=== PATIENT | female | born 1955 | race Caucasian/White ===

== ENCOUNTER 2016-06-30 01:03 | Inpatient (IN) | payer OTHER ==
[~2016-06-30] VITALS: Ht 152.4 cm; Wt 47.4 kg
[2016-06-30 01:16] VITALS: BP 165/83; PULSE 102; RESP 18; TEMP 98.7; O2SAT 99
[2016-06-30] MEDS ORDERED: LIDOCAINE 1%/EPINEPHrine 1:100,000 SOLN 20 ML VIAL ONE (01:24)
[2016-06-30 03:09] LABS: BASOPHIL # 0.1 TH/MM3 (0-0.2); BASOPHIL % 1.5 % (0.0-2.0); EOSINOPHIL # 0.2 TH/MM3 (0-0.4); EOSINOPHIL % 1.7 % (0.0-4.0); HEMATOCRIT 35.9 % (35.0-46.0); HEMO FLAGS DIFF FINAL; LYMPH % 39.3 % (9.0-44.0); MEAN CELL VOLUME 95.3 FL (80.0-100.0); MEAN CORPUSCULAR HGB CONC 33.6 % (32.0-36.0); NEUT % 49.5 % (16.0-70.0); PLATELET COUNT 384 TH/MM3 (150-450); RED BLOOD COUNT 3.77 MIL/MM3 (4.00-5.30); RED CELL DISTRIBUTION WIDTH 14.7 % (11.6-17.2); WHITE BLOOD COUNT 10.1 TH/MM3 (4.0-11.0)
[2016-06-30 03:21] LABS: ALT (GPT) 18 U/L (10-53); ANION GAP 11 MEQ/L (5-15); AST (GOT) 12 U/L (15-37); BICARBONATE 23.7 MEQ/L (21.0-32.0); BLOOD UREA NITROGEN 10 MG/DL (7-18); CHLORIDE 112 MEQ/L (98-107); GLOMERULAR FILTRATION RATE 135 ML/MIN (>89); SODIUM (NA) 147 MEQ/L (136-145)
[2016-06-30 03:24] LABS: ACETAMINOPHEN LESS THAN 2.0 MCG/ML (10.0-30.0); ALKALINE PHOSPHATASE 123 U/L (45-117); TOTAL BILIRUBIN ADULT 0.2 MG/DL (0.2-1.0)
--- NOTE | 2016-06-30 04:48 | PD ---
HPI Chief Complaint: Psychiatric Symptoms Time Seen by Provider: 02:42 Travel History International Travel<30 days: No Contact w/Intl Traveler<30days: No Traveled to known affect area: No History of Present Illness HPI 61F arrives as a chery act. She states the Internet is going to kill her. She drank alcohol today. She refused medical care after she fell and lacerated her right parietal occipital scalp. Agitated upon arrival. Refused care. Shouting. Incompetent for refusal of care. Soft restraints applied. [facility] Past Medical History Medical History: Unable to Obtain Past Surgical History Surgical History: Unable to Obtain Social History Alcohol Use: Yes Tobacco Use: Yes Substance Use: No Allergies-Medications (Allergen,Severity, Reaction): Coded Allergies: UNOBTAINABLE (Unverified , 06/30/16) PT UNCOOPERATIVE AT THIS TIME. Reported Meds & Prescriptions Reported Meds & Active Scripts Active Active Prescriptions or Reported Medications Unobtainable Review of Systems ROS Limitations: Clinical Condition, Uncooperative, Combative, Psychotic Physical Exam Narrative GENERAL: 61 yo F, WNWD SKIN: Warm and dry. HEAD: Atraumatic. Normocephalic. 3 cm laceration along the right occipital scalp. EYES: Pupils equal and round. No scleral icterus. No injection or drainage. ENT: No nasal bleeding or discharge. Mucous membranes pink and moist. NECK: Trachea midline. No JVD. CARDIOVASCULAR: Regular rate and rhythm. RESPIRATORY: No accessory muscle use. Clear to auscultation. Breath sounds equal bilaterally. GASTROINTESTINAL: Abdomen soft, non-tender, nondistended. Hepatic and splenic margins not palpable. MUSCULOSKELETAL: Extremities without clubbing, cyanosis, or edema. No obvious deformities. NEUROLOGICAL: Awake and alert. No obvious cranial nerve deficits. Motor grossly within normal limits. Five out of 5 muscle strength in the arms and legs. Normal speech. PSYCHIATRIC: Agitated. Psychotic. Data Data Last Documented VS Vital Signs Date Time Temp Pulse Resp B/P Pulse Ox O2 Delivery O2 Flow Rate FiO2 06/30/16 01:16 98.7 102 18 165/83 99 Vital signs reviewed Orders Lidocai-Epi 1%-1:100,000 Inj (Xylocaine- (06/30/16 01:24) Complete Blood Count With Diff (06/30/16 02:42) Comprehensive Metabolic Panel (06/30/16 02:42) Psych Screen (06/30/16 02:42) Drug Screen, Random Urine (06/30/16 02:42) Alcohol (Ethanol) (06/30/16 02:42) Salicylates (Aspirin) (06/30/16 02:42) Tylenol (Acetaminophen) (06/30/16 02:42) Labs Laboratory Tests Test 06/30/16 03:01 White Blood Count 10.1 TH/MM3 Red Blood Count 3.77 MIL/MM3 Hemoglobin 12.1 GM/DL Hematocrit 35.9 % Mean Corpuscular Volume 95.3 FL Mean Corpuscular Hemoglobin 32.0 PG Mean Corpuscular Hemoglobin 33.6 % Concent Red Cell Distribution Width 14.7 % Platelet Count 384 TH/MM3 Mean Platelet Volume 8.8 FL Neutrophils (%) (Auto) 49.5 % Lymphocytes (%) (Auto) 39.3 % Monocytes (%) (Auto) 8.0 % Eosinophils (%) (Auto) 1.7 % Basophils (%) (Auto) 1.5 % Neutrophils # (Auto) 5.0 TH/MM3 Lymphocytes # (Auto) 4.0 TH/MM3 Monocytes # (Auto) 0.8 TH/MM3 Eosinophils # (Auto) 0.2 TH/MM3 Basophils # (Auto) 0.1 TH/MM3 CBC Comment DIFF FINAL Differential Comment Sodium Level 147 MEQ/L Potassium Level 4.0 MEQ/L Chloride Level 112 MEQ/L Carbon Dioxide Level 23.7 MEQ/L Anion Gap 11 MEQ/L Blood Urea Nitrogen 10 MG/DL Creatinine 0.47 MG/DL Estimat Glomerular Filtration 135 ML/MIN Rate Random Glucose 100 MG/DL Calcium Level 8.5 MG/DL Total Bilirubin 0.2 MG/DL Aspartate Amino Transf 12 U/L (AST/SGOT) Alanine Aminotransferase 18 U/L (ALT/SGPT) Alkaline Phosphatase 123 U/L Total Protein 7.1 GM/DL Albumin 3.6 GM/DL Salicylates Level 3.5 MG/DL Acetaminophen Level LESS THAN 2.0 MCG/ML Ethyl Alcohol Level 219 MG/DL [facility] Medical Decision Making Medical Screen Exam Complete: Yes Emergency Medical Condition: Yes Differential Diagnosis Altered mental status/psychosis due to infection/environmental exposure/ metabolic abnormality, polypharmacy, alcohol abuse/intoxication, illicit or prescribed drug abuse, malingering/secondary gain, non-organic psychiatric disease Narrative Course CBC & BMP Diagram 06/30/16 03:01 LFTs normal EtOH 219 APAP 2.0 The history of present illness, ROS, physical exam, review of records and medical workup performed for today's visit have reasonably safely excluded organic etiologies for the patient's presenting complaint. We will continue to monitor the patient carefully in the ER until time of evaluation by the psychiatry service. We are available for any additional medical assistance if needed during the patient's ER course. Disposition per discretion of psychiatry is appreciated. Diagnosis Primary Impression: Psychosis Qualified Code: F29 - Psychosis, unspecified psychosis type Additional Impression: Alcohol intoxication Qualified Code: F10.129 - Alcohol intoxication, with unspecified complication Scripts Unable to Obtain Active Prescriptions or Reported Meds David Roberts MD Jun 30, 2016 04:48
--- NOTE | 2016-06-30 05:27 | PD ---
Physical Exam Date Seen by Provider: Jun 30, 2016 Time Seen by Provider: 05:25 Narrative Skin: Patient has a 4 cm laceration to the right parietal scalp. No step-off. No deep injury. Data Data Last Documented VS Vital Signs Date Time Temp Pulse Resp B/P Pulse Ox O2 Delivery O2 Flow Rate FiO2 06/30/16 01:16 98.7 102 18 165/83 99 Orders Lidocai-Epi 1%-1:100,000 Inj (Xylocaine- (06/30/16 01:24) Complete Blood Count With Diff (06/30/16 02:42) Comprehensive Metabolic Panel (06/30/16 02:42) Psych Screen (06/30/16 02:42) Drug Screen, Random Urine (06/30/16 02:42) Alcohol (Ethanol) (06/30/16 02:42) Salicylates (Aspirin) (06/30/16 02:42) Tylenol (Acetaminophen) (06/30/16 02:42) Labs Laboratory Tests Test 06/30/16 03:01 White Blood Count 10.1 TH/MM3 Red Blood Count 3.77 MIL/MM3 Hemoglobin 12.1 GM/DL Hematocrit 35.9 % Mean Corpuscular Volume 95.3 FL Mean Corpuscular Hemoglobin 32.0 PG Mean Corpuscular Hemoglobin 33.6 % Concent Red Cell Distribution Width 14.7 % Platelet Count 384 TH/MM3 Mean Platelet Volume 8.8 FL Neutrophils (%) (Auto) 49.5 % Lymphocytes (%) (Auto) 39.3 % Monocytes (%) (Auto) 8.0 % Eosinophils (%) (Auto) 1.7 % Basophils (%) (Auto) 1.5 % Neutrophils # (Auto) 5.0 TH/MM3 Lymphocytes # (Auto) 4.0 TH/MM3 Monocytes # (Auto) 0.8 TH/MM3 Eosinophils # (Auto) 0.2 TH/MM3 Basophils # (Auto) 0.1 TH/MM3 CBC Comment DIFF FINAL Differential Comment Sodium Level 147 MEQ/L Potassium Level 4.0 MEQ/L Chloride Level 112 MEQ/L Carbon Dioxide Level 23.7 MEQ/L Anion Gap 11 MEQ/L Blood Urea Nitrogen 10 MG/DL Creatinine 0.47 MG/DL Estimat Glomerular Filtration 135 ML/MIN Rate Random Glucose 100 MG/DL Calcium Level 8.5 MG/DL Total Bilirubin 0.2 MG/DL Aspartate Amino Transf 12 U/L (AST/SGOT) Alanine Aminotransferase 18 U/L (ALT/SGPT) Alkaline Phosphatase 123 U/L Total Protein 7.1 GM/DL Albumin 3.6 GM/DL Salicylates Level 3.5 MG/DL Acetaminophen Level LESS THAN 2.0 MCG/ML Ethyl Alcohol Level 219 MG/DL MDM Medical Record Reviewed: Yes Supervised Visit with ATILIO: Yes Interpretation(s) Laboratory Tests Test 06/30/16 03:01 White Blood Count 10.1 TH/MM3 Red Blood Count 3.77 MIL/MM3 Hemoglobin 12.1 GM/DL Hematocrit 35.9 % Mean Corpuscular Volume 95.3 FL Mean Corpuscular Hemoglobin 32.0 PG Mean Corpuscular Hemoglobin 33.6 % Concent Red Cell Distribution Width 14.7 % Platelet Count 384 TH/MM3 Mean Platelet Volume 8.8 FL Neutrophils (%) (Auto) 49.5 % Lymphocytes (%) (Auto) 39.3 % Monocytes (%) (Auto) 8.0 % Eosinophils (%) (Auto) 1.7 % Basophils (%) (Auto) 1.5 % Neutrophils # (Auto) 5.0 TH/MM3 Lymphocytes # (Auto) 4.0 TH/MM3 Monocytes # (Auto) 0.8 TH/MM3 Eosinophils # (Auto) 0.2 TH/MM3 Basophils # (Auto) 0.1 TH/MM3 CBC Comment DIFF FINAL Differential Comment Sodium Level 147 MEQ/L Potassium Level 4.0 MEQ/L Chloride Level 112 MEQ/L Carbon Dioxide Level 23.7 MEQ/L Anion Gap 11 MEQ/L Blood Urea Nitrogen 10 MG/DL Creatinine 0.47 MG/DL Estimat Glomerular Filtration 135 ML/MIN Rate Random Glucose 100 MG/DL Calcium Level 8.5 MG/DL Total Bilirubin 0.2 MG/DL Aspartate Amino Transf 12 U/L (AST/SGOT) Alanine Aminotransferase 18 U/L (ALT/SGPT) Alkaline Phosphatase 123 U/L Total Protein 7.1 GM/DL Albumin 3.6 GM/DL Salicylates Level 3.5 MG/DL Acetaminophen Level LESS THAN 2.0 MCG/ML Ethyl Alcohol Level 219 MG/DL Differential Diagnosis MDM: High Differential diagnoses: Fracture, sprain, strain, dislocation, contusion, neurovascular injury Narrative Course Patient's laceration is closed with michelle Procedures Procedure Narrative LACERATION LOCATION: Right parietal scalp LENGTH: 4 cm NUMBER OF STITCHES/MICHELLE: 5 REPAIR: The area of the laceration was prepped with Betadine and sterilely draped. The laceration was infiltrated with 1% lidocaine with epinephrine. The wound was copiously irrigated and explored without evidence of foreign body , tendon injury or neurovascular injury. The wound was closed using michelle. This was a simple single layer repair. A sterile dressing was applied. The patient was advised to keep the dressing clean and dry. Patient tolerated the procedure well. Diagnosis Primary Impression: Psychosis Qualified Code: F29 - Psychosis, unspecified psychosis type Additional Impression: Alcohol intoxication Qualified Code: F10.129 - Alcohol intoxication, with unspecified complication Med/Other Pt SpecificInfo: Wound Care Scripts Unable to Obtain Active Prescriptions or Reported Meds Condition: Moisés Barnett Jun 30, 2016 05:27
[2016-06-30 07:20] VITALS: BP 127/76; PULSE 70; RESP 18; O2SAT 97
[2016-06-30] MEDS ORDERED: LORazepam 1 MG TAB PO PRN ×2 (09:45)
[2016-06-30] MEDS ORDERED: diphenhydrAMINE HCL 50 MG CAP PO PRN (09:45)
[2016-06-30] MEDS ORDERED: FLUMAZENIL 0.5 MG/5 ML VIAL IV PUSH PRN (09:45)
[2016-06-30] MEDS ORDERED: ALUMINUM/MAGNESIUM/SIMETH 30 ML CUP PO PRN (09:45)
[2016-06-30] MEDS ORDERED: LORazepam 2 MG/ML VIAL IV PUSH PRN ×4 (09:45)
[2016-06-30] MEDS ORDERED: ACETAMINOPHEN 325 MG TAB PO PRN (09:45)
[2016-06-30] MEDS ORDERED: BENZTROPINE MESYLATE 2 MG/2 ML VIAL IM PRN (09:45)
[2016-06-30] MEDS ORDERED: LORazepam 2 MG TAB PO PRN (09:45)
[2016-06-30] MEDS ORDERED: MAGNESIUM HYDROXIDE SUSP 30 ML CUP PO PRN (09:45)
[2016-06-30] MEDS ORDERED: BENZTROPINE MESYLATE 1 MG TAB PO PRN (09:45)
[2016-06-30] MEDS ORDERED: LORazepam 2 MG/ML VIAL IM PRN (09:45)
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
[2016-06-30 11:06] LABS: AMPHETAMINE, URINE NEG (NEG); BARBITURATES, URINE NEG (NEG); COCAINE, URINE NEG (NEG)
[2016-06-30 12:21] VITALS: BP 121/70; PULSE 74; RESP 18; TEMP 98.6; O2SAT 97
[2016-06-30 12:54] VITALS: BP 131/84; PULSE 76; RESP 16; TEMP 98.2; O2SAT 97
[2016-06-30 18:00] VITALS: BP 110/67; PULSE 87; RESP 16; TEMP 98.8; O2SAT 98
[2016-06-30 18:01] LABS: AMPHETAMINE, URINE NEG (NEG); BARBITURATES, URINE NEG (NEG); COCAINE, URINE NEG (NEG)
[2016-06-30] MEDS: REMOVE OLD PATCH T-DERMAL SCH (20:39)
[2016-07-01] MEDS: THIAMINE HCL 100 MG TAB PO SCH (09:00)
[2016-07-01] MEDS: NICOTINE 21 MG/24 HR PATCH T-DERMAL SCH (09:07)
[2016-07-01] MEDS: FOLIC ACID 1 MG TAB PO SCH (09:08)
--- NOTE | 2016-07-01 10:04 | HHI.PYPN ---
Subjective Remarks Patient continues to be delusional with impaired judgment and impaired insight. Her delusions continued to be of a paranoid nature. She does not understand why she is in the hospital when this physician approached her about the civil commitment. Review of Systems ROS Limitations: Clinical Condition Objective Alert: Yes [place]: Person, Place, Date Mood: Anxious Affect: Appropriate Memory Intact: Immediate, Recent Hallucinations: Other Delusions: Yes Delusion Type: Paranoid Suicidal: Ideation Homicidal: Ideation Insight/Judgment Grossly impaired Labs Test 06/30/16 06/30/16 10:40 17:43 Urine Opiates Screen NEG NEG Urine Barbiturates Screen NEG NEG Urine Amphetamines Screen NEG NEG Urine Benzodiazepines Screen NEG NEG Urine Cocaine Screen NEG NEG Urine Cannabinoids Screen NEG NEG Vitals/IOs Vital Signs Date Time Temp Pulse Resp B/P Pulse Ox O2 Delivery O2 Flow Rate FiO2 06/30/16 18:00 98.8 87 16 110/67 98 06/30/16 12:21 Room Air Assessment & Plan Problem List: (1) Brief psychotic disorder ICD Code: F23 Assessment & Plan Estimated LOS: 3 days plan to continue patient on antipsychotic medication for now. Second opinion signed for civil commitment. Patient remains unable to care for self due to psychosis. Justification for Cont. Inpt. Psychotic and unable to care for self. Jacoby Tran MD Jul 01, 2016 10:04
[2016-07-01 10:26] LABS: HEMOGLOBIN A1a 1.2 %; HEMOGLOBIN A1b 0.9 %; HEMOGLOBIN Ao 84.4 %; HEMOGLOBIN F 1.2 %; HEMOGLOBIN LA1C 2.2 %; HEMOGLOBIN P3 3.7 %
[2016-07-01 10:34] LABS: ANION GAP 10 MEQ/L (5-15); BICARBONATE 28.4 MEQ/L (21.0-32.0); BLOOD UREA NITROGEN 16 MG/DL (7-18); CHLORIDE 102 MEQ/L (98-107); FREE T4 0.96 NG/DL (0.76-1.46); GLOMERULAR FILTRATION RATE 73 ML/MIN (>89); HDL CHOLESTEROL 73.5 MG/DL (40.0-60.0); LDL CHOLESTEROL 118 MG/DL (0-99); POTASSIUM 3.9 MEQ/L (3.5-5.1); SODIUM (NA) 140 MEQ/L (136-145)
[2016-07-01 20:00] VITALS: TEMP 97.9
[2016-07-01] MEDS: REMOVE OLD PATCH T-DERMAL SCH (20:15)
[2016-07-02] MEDS: THIAMINE HCL 100 MG TAB PO SCH (08:22)
[2016-07-02] MEDS: FOLIC ACID 1 MG TAB PO SCH (08:23)
[2016-07-02] MEDS: NICOTINE 21 MG/24 HR PATCH T-DERMAL SCH (08:28)
[2016-07-02 18:33] VITALS: BP 127/61; PULSE 80; RESP 16; TEMP 97.8; O2SAT 99
[2016-07-02] MEDS: REMOVE OLD PATCH T-DERMAL SCH (21:00)
[2016-07-02 21:49] VITALS: BP 127/61; PULSE 80; RESP 16; TEMP 97.8; O2SAT 99
[2016-07-03 05:43] VITALS: BP 101/60; PULSE 67; RESP 16; TEMP 97.8; O2SAT 96
[2016-07-03] MEDS: FOLIC ACID 1 MG TAB PO SCH (08:01)
[2016-07-03] MEDS: NICOTINE 21 MG/24 HR PATCH T-DERMAL SCH (08:01)
[2016-07-03] MEDS: THIAMINE HCL 100 MG TAB PO SCH (08:01)
--- NOTE | 2016-07-03 10:28 | HHI.DS ---
Psychiatry Discharge Summary Inpatient Psychiatric care?: Yes Advance Directive: No Reason Not Provided: Due to Patient Condition Mental Health AdvanceDirective: No Health Care Proxy: No Admission Admission Date Jun 30, 2016 at 09:44 Admission Diagnosis: (1) Brief psychotic disorder ICD Code: F23 Brief History Patient admitted by Dr. Tessa arroyo. Recently discharged from a psychiatric hospital in [facility]. Was found to be delusional there but could not obtain antipsychotic medication, Zyprexa, at time of discharge. Now placed on Risperdal and felt to be improved. Tobacco Use In Past 30 Days: 5 or More Cigarettes/Day Alcohol Use: 2-4 Times Per Month Hospital Course Patient participated in individual and group therapies. She was started on Risperdal for her psychotic symptoms and was responding at the time of discharge. No procedures were performed but the display manager released the patient because the daughter of the patient reportedly is willing to take care of patient at home. Results Blood Pressure 101 / 60 Vital Signs Date Time Temp Pulse Resp B/P Pulse Ox O2 Delivery O2 Flow Rate FiO2 07/03/16 05:43 97.8 67 16 101/60 96 06/30/16 12:21 Room Air Laboratory Tests Test 07/01/16 08:22 Estimat Glomerular Filtration 73 ML/MIN (>89) Rate Random Glucose 158 MG/DL (74-106) Cholesterol Level 215 MG/DL (120-200) LDL Cholesterol 118 MG/DL (0-99) HDL Cholesterol 73.5 MG/DL (40.0-60.0) Laboratory Results Test 07/01/16 08:22 Hemoglobin A1c 5.8 % (4.3-6.0) Triglycerides Level 117 MG/DL (42-150) Cholesterol Level 215 MG/DL (120-200) LDL Cholesterol 118 MG/DL (0-99) HDL Cholesterol 73.5 MG/DL (40.0-60.0) Summary of Procedures None Pending results at discharge: No Medications # of Antipsychotic meds at D/C: 1 Appropriate >1 Antipsych meds?: 1 Approp Antipsych med options 1 - Minimum of three failed multiple trials of monotherapy. 2 - Documented plan to taper to monotherapy due to previous use of multiple meds OR cross-taper in progress at D/C. 3 - Documentation of augmentation of Clozapine. 4 - Justification other than those listed in allowable values 1-3, document here : Discharge Discharge Date: Jul 03, 2016 Discharge Diagnosis: (1) Brief psychotic disorder Diagnosis: Principal ICD Code: F23 Mental Status Exam at Disch At the time of discharge this physician feels the patient is still paranoid. She is not suicidal or homicidal and demonstrates no ideation, plan or intent to harm herself or others. She is returning home to her daughter who has told the manager social that she will care for her mother. Again, however, patient was released by the display manager. Pt Condition on Discharge: Guarded Discharge Disposition: Discharge Home Discharge Instructions Diet Instructions: As Tolerated, No Restrictions Activities you can perform: Regular-No Restrictions Discharge Time <= 30 minutes Discharge/Advance Care Plan Health Problems: (1) Brief psychotic disorder Goals to promote your health * To prevent worsening of your condition and complications * To maintain your health at the optimal level Directions to meet your goals Take your medications as prescribed Follow your dietary instruction Follow activity as directed Keep your appointments as scheduled Take your immunizations and boosters as scheduled If your symptoms worsen call your PCP, if no PCP go to Urgent Care Center or Emergency Room For 29/09 questions related to your inpatient stay or results of tests pending at discharge, please contact Dr. Jacoby Tran at Smoking is Dangerous to Your Health. Avoid second hand smoking Jacoby Tran MD Jul 03, 2016 10:28
[2016-07-03] MEDS ORDERED: RISP0.5T20 PO (10:31)
--- NOTE | 2016-07-03 12:11 | HHI.PYPN ---
Subjective Remarks This is a psychiatric progress note for 426. Patient calm and cooperative. Delusions are less. Tolerates Risperdal well. Agreed to stay voluntarily until Thursday. Review of Systems ROS Limitations: Clinical Condition Objective Alert: Yes [place]: Person, Place, Date Mood: Anxious Affect: Appropriate Memory Intact: Immediate, Recent Hallucinations: Other Delusions: Yes Delusion Type: Paranoid Suicidal: Ideation Homicidal: Ideation Insight/Judgment Impaired but improved. Vitals/IOs Vital Signs Date Time Temp Pulse Resp B/P Pulse Ox O2 Delivery O2 Flow Rate FiO2 07/03/16 05:43 97.8 67 16 101/60 96 06/30/16 12:21 Room Air Assessment & Plan Problem List: (1) Brief psychotic disorder ICD Code: F23 Assessment & Plan Estimated LOS 3: days this physician feels the patient needs to continue on antipsychotic medication for now. Justification for Cont. Inpt. Patient likely to decompensate at lower level of care if daughter unable to care for her. Jacoby Tran MD Jul 03, 2016 12:11
[2016-07-03 13:36] LABS: PHENCYCLIDINE URINE NEG (NEG)
[2016-07-03 13:37] LABS: BATH SALTS (MDPV) UR NEG (NEG); ECSTASY (MDMA) UR NEG (NEG); GABAPENTIN UR NEG (NEG); HEROIN (6-ACETYLMORPHINE) UR NEG (NEG); HYDROMORPHONE U NEG (NEG); K2 SPICE UR NEG (NEG); OBMETHADONE UR NEG (NEG); OXYCODONE (PERCODAN) NEG (NEG)
== END 2016-07-03 14:40 | disposition home or self-care (01) | DRG 885 ==
LOC: NEPE 01:03 → NEDA 09:44 → H260 12:45
PROVIDERS: ADMIT Psychiatry & Neurology Psychiatry; ATTEND Psychiatry & Neurology Psychiatry
PROC: 0HQ0XZZ Repair Scalp Skin, External Approach (ICD-10-PCS; principal; 2016-06-30)
DX: F23 Brief psychotic disorder (principal); F10.120 Alcohol abuse with intoxication, uncomplicated; Y90.7 Blood alcohol level of 200-239 mg/100 ml; S01.01XA Laceration without foreign body of scalp, initial encounter; W19.XXXA Unspecified fall, initial encounter
CPT/HCPCS: 12002; 80048; 80053; 80061; 80307; 80348; 82607; 83036; 84439; 84443; 85025; 86592; G0480; G0481

== ENCOUNTER 2016-07-09 09:01 | Emergency (ER) | payer OTHER, MEDICAID ==
[~2016-07-09] VITALS: Ht 157.5 cm; Wt 50.0 kg
[~2016-07-09 09:01] MED LIST: RISP0.5T20 PO
[2016-07-09 09:02] VITALS: BP 133/82; PULSE 15; PULSE 93; RESP 16; TEMP 97.9; O2SAT 97
--- NOTE | 2016-07-09 09:15 | PD ---
HPI Chief Complaint: Wound/Suture/Staple Re-Check Time Seen by Provider: 09:14 (Eloina Mayberry) Time Seen by Provider: 09:14 (Veronica Nelson MD) Travel History International Travel<30 days: No Contact w/Intl Traveler<30days: No Traveled to known affect area: No (Eloina Mayberry) History of Present Illness HPI 61-year-old female presents to emergency department for staple removal to right scalp. They have been in place for 10 days. Denies fever or vomiting. Has no medical complaints. No known allergies. No other modifying factors or associated signs and symptoms. (Eloina Mayberry) PFSH Past Medical History Arthritis: No Cancer: No (per pt) Cardiovascular Problems: No (per pt) Headaches: Yes (per pt frequently) Musculoskeletal: No Psychiatric: Yes (Psychotic symptoms) Seizures: No (per pt) (Eloina Mayberry) Past Surgical History Abdominal Surgery: Yes (, splenectomy, appendectomy) (Eloina Mayberry) Social History Alcohol Use: Yes Tobacco Use: Yes Substance Use: No (Eloina Mayberry) Allergies-Medications (Allergen,Severity, Reaction): Coded Allergies: No Known Allergies (Unverified , 07/09/16) Reported Meds & Prescriptions Reported Meds & Active Scripts Active Risperdal (Risperidone) 0.5 Mg Tab 0.5 Mg PO Q12HR (Veronica Nelson MD) Review of Systems Except as stated in HPI: all other systems reviewed are Neg (Eloina Mayberry) Physical Exam Narrative GENERAL: Well-nourished, well-developed female patient, in no acute distress SKIN: Warm and dry. Wound to right scalp is approximated with michelle intact; without erythema, edema, drainage. No signs of infection. HEAD: Atraumatic. Normocephalic. EYES: Pupils equal and round. No scleral icterus. No injection or drainage. ENT: Mucosa pink and moist. Airway patent. NECK: Trachea midline. CARDIOVASCULAR: Regular rate. RESPIRATORY: No accessory muscle use. GASTROINTESTINAL: Flat. MUSCULOSKELETAL: No obvious deformities. No clubbing. No cyanosis. No edema. NEUROLOGICAL: Awake and alert. Oriented 3. No obvious cranial nerve deficits. Motor grossly within normal limits. Normal speech. PSYCHIATRIC: Appropriate mood and affect; insight and judgment normal. (Eloina Mayberry) Data Data Last Documented VS Vital Signs Date Time Temp Pulse Resp B/P Pulse Ox O2 Delivery O2 Flow Rate FiO2 07/09/16 09:02 97.9 93 16 133/82 97 (Veronica Nelson MD) [facility] Medical Decision Making Medical Screen Exam Complete: Yes Emergency Medical Condition: Yes Medical Record Reviewed: Yes Differential Diagnosis Stable removal, stitch removal, wound recheck, medical clearance Narrative Course 61-year-old female presents for staple removal from the right scalp. The wound is well approximated with no signs of infection. Michelle removed. Patient tolerated well. Patient verbalizes understanding and agreement with treatment plan. Patient is medically cleared and stable for discharge. Discussed reasons to return to the emergency department. Instructed patient to follow up with primary care provider. Patient agrees with treatment plan. The patients vital signs are stable and the patient is stable for outpatient follow-up and treatment. Patient discharged home, stable and in no acute distress. (Eloina Mayberry) Diagnosis Primary Impression: Encounter for staple removal Referrals: Primary Care Physician Patient Instructions: Acute Wound Care (ED), General Instructions Departure Forms: Tests/Procedures, Work Release Enter return to work date: July 09, 2016 Additional Instructions: Ibuprofen or Tylenol instructed and as needed for pain Follow-up with primary care provider Return to the emergency department immediately with worsening of symptoms Med/Other Pt SpecificInfo: No Change to Meds, No Meds Exist/No RX given ( Eloina Mayberry) Disposition: 01 DISCHARGE HOME Condition: Stable Eloina Mayberry July 09, 2016 09:15 Veronica Nelson MD July 09, 2016 14:31
== END 2016-07-09 09:36 | disposition home or self-care (01) ==
LOC: NEPK 09:01
DX: S01.00XD Unspecified open wound of scalp, subsequent encounter (principal); X58.XXXD Exposure to other specified factors, subsequent encounter; Z48.02 Encounter for removal of sutures
CPT/HCPCS: 99281